=== PATIENT | female | born 1970 | race Caucasian/White ===

== ENCOUNTER 2025-06-24 23:41 | Emergency (ER) | payer MEDICAID ==
[~2025-06-24] VITALS: Ht 149.9 cm; Wt 55.3 kg
[2025-06-25 00:02] VITALS: O2SAT 98
[2025-06-25] MEDS ORDERED: IBUP-1455 MT (01:56)
[2025-06-25] MEDS: IBUPROFEN 600MG TABLET PO ONE (02:25)
[2025-06-25 02:26] VITALS: BP 160/80; PULSE 99; RESP 12; TEMP 37; O2SAT 98
== END 2025-06-25 02:50 | disposition home or self-care (01) ==
LOC: ER 23:41
DX: S76.012A Strain of muscle, fascia and tendon of left hip, initial encounter (principal); S83.92XA Sprain of unspecified site of left knee, initial encounter; W01.0XXA Fall on same level from slipping, tripping and stumbling without subsequent striking against object, initial encounter; Y93.89 Activity, other specified; Y92.89 Other specified places as the place of occurrence of the external cause; Y99.8 Other external cause status
CPT/HCPCS: 73552; 73562; 99284

== ENCOUNTER 2025-09-06 18:20 | Emergency (ER) | payer MEDICAID ==
[~2025-09-06] VITALS: Ht 160 cm; Wt 60.0 kg
[~2025-09-06 18:20] MED LIST: IBUP-1455 MT
[2025-09-06 18:30] VITALS: O2SAT 100
[2025-09-06] MEDS: KETOROLAC 15MG/ML VIAL IM ONE (22:13)
[2025-09-06] MEDS ORDERED: IBUP-1455 MT (22:56)
[2025-09-06 23:20] VITALS: TEMP 36.9; O2SAT 99
[2025-09-06 23:23] VITALS: BP 185/93; PULSE 85; RESP 16
[2025-09-06] MEDS: IBUPROFEN 600MG TABLET PO ONE (23:23)
== END 2025-09-06 23:24 | disposition left against medical advice (07) ==
LOC: ER 18:42
DX: M25.562 Pain in left knee (principal)
CPT/HCPCS: 99283; Z7610; J1885